=== PATIENT | female | born 1990 | race Caucasian/White ===

== ENCOUNTER 2023-08-31 12:02 | Emergency (ER) | payer OTHER ==
[2023-08-31 12:09] VITALS: RESP 18; TEMP 98.1; BMI 22.4
[2023-08-31] MEDS ORDERED: morphine SULFATE 4 MG/ML VIAL ONE (13:06)
[2023-08-31] MEDS: SODIUM CHLORIDE 0.9% 500 ML INFUS.BAG IV ONE (13:17)
[2023-08-31] MEDS: morphine SULFATE 4 MG/ML VIAL IVPUSH ONE (13:17)
[2023-08-31 13:48] VITALS: BP 110/70; PULSE 70
[2023-08-31] MEDS ORDERED: BACITRACIN ZINC 15 GM TUBE TOPICAL OINTMENT ONE (14:16)
== END 2023-08-31 15:33 | disposition home or self-care (01) ==
LOC: JER 12:02
PROC: 3E033NZ Introduction of Analgesics, Hypnotics, Sedatives into Peripheral Vein, Percutaneous Approach (ICD-10-PCS; principal; 2023-08-31)
PROC: 3E033GC Introduction of Other Therapeutic Substance into Peripheral Vein, Percutaneous Approach (ICD-10-PCS; 2023-08-31)
DX: T24.231A Burn of second degree of right lower leg, initial encounter (principal); R51.9 Headache, unspecified; X12.XXXA Contact with other hot fluids, initial encounter
CPT/HCPCS: 93005; 93010; 99284-25